=== PATIENT | female | born 1985 | race Caucasian/White ===

== ENCOUNTER 2016-12-06 16:57 | Observation (INO) | payer MEDICAID, SELFPAY ==
[2016-12-06 17:07] VITALS: BMI 28.7
[2016-12-06 17:30] VITALS: BP 133/85; PULSE 87; RESP 20; TEMP 36.8
--- NOTE | 2016-12-06 17:57 | PCM.HP.STD ---
Problem List (1) Heroin withdrawal Status: Acute (2) Polysubstance abuse Status: Chronic (3) Nicotine abuse Status: Chronic (4) Anxiety Status: Chronic (5) Depression Status: Chronic (6) Hx of migraines Status: Chronic History of Present Illness Date of Admission: 12/06/16 Chief Complaint: Heroin withdrawal The patient is a 31 year old F who was admitted to the hospital under the [facility] for heroin withdrawal. The patient came straight here from [facility] emergency room. Last night she was admitted to the emergency room in overdose and unresponsive. She received doses of Narcan nasally which were ineffective and had to receive IO access in order to receive Narcan. This is the second time she is overdosed this week. The first time she claims she did not need Narcan to bring her out of it. The patient was clean for 4 years successfully in the [facility] Sub[facility] program. After she is released from the hospital she plans on pursuing this again. Currently she is very anxious. She is having diarrhea multiple times a day. She had a headache this morning however this is resolved, she does have a history of migraines. She has pain in her left leg at the IO site. She has no fevers or chills. She is requesting nicotine patch. Patient does admit to using other drugs, she is not sure what she just uses recreationally whatever is available to her. She is not sure what she last took that made her overdose this much, stating she does not know what was in it. Prior to arrival she was living with her fianc? who does not use, her plan is to return home with her parents at discharge. She currently does not have any injection site reactions, she does have a history of abscesses. He has never had MRSA. [] Past Medical History Past Medical History (Chronic Problems): Chronic Problems Anxiety (Chronic) Depression (Chronic) Hx of migraines (Chronic) Nicotine abuse (Chronic) Polysubstance abuse (Chronic) Allergies No Known Allergies Allergy (Verified 03/28/15 09:00) Smoking Status: Heavy Smoker (>10/day) - *Family History Sibling History Items: - - Multiple siblings with depression and anxiety Review of Systems Constitutional: Denies: Chills, Fever Eyes: Denies: Blurred vision, Double vision HEENT: Denies: Difficulty Hearing, Dysphasia, Head Aches, Sinus Congestion, Sinus Drainage, Visual Changes Cardiovascular: Denies: Chest Pain, Chest Pressure, Chest Tightness, Palpitations, Syncope Respiratory: Denies: Cough, Shortness of breath at rest, Sputum production Gastrointestinal: Denies: Abdominal Pain, Nausea, Vomiting Genitourinary: Denies: Dysuria Musculoskeletal: Reports: Leg Pain - Left lower extremity at IO site.. Denies: Joint Pain, Joint Tenderness Skin: Denies: Rash, Wounds Neurological: Reports: Headaches - This a.m.. Denies: Blurred vision, Double vision, Confusion, Focal weakness, Numbness, Tingling, Tremor Psychiatric: Denies: Anxiety, Depression, Homicidal Ideations, Suicidal Ideations Hematologic/ Lymphatic: Denies: Easy Bruising, Easy Bleeding VTE Information - Inpt Only VTE Present on Admission: No VTE Mechan Device Prophylaxis: None VTE Pharm Prophylaxis ordered?: Yes Patient Problems: Active and Suspected Problems Heroin withdrawal (Acute) - Physical Exam General: Alert, Oriented x3, Cooperative HEENT: Atraumatic, PERRLA, EOMI, Normocephalic Neck: Supple, No JVD, Negative Carotid Bruits Lungs: Clear to auscultation, Normal air movement Cardiovascular: Regular rate, No murmurs Abdomen: Bowel Sounds Present, Soft, Non Tender Extremities: No edema, Capillary Refill Less than 3 Seconds Skin: No rashes, No breakdown Musculoskeletal: No Tenderness to Palpation of Joints or Extremities Neurological: Cranial nerves II-XII grossly intact Psych/Mental Status: Normal Affect, Appropriate Oxygen Delivery Method Room Air Weight: 75.886 kg Body Mass Index (BMI) 28.7 Assessment/Plan Active and Suspected Problems Heroin withdrawal (Acute) Assessment/plan: 1. Heroin withdrawal-patient is [facility]. Initiate opiate withdrawal protocol. Patient has polysubstance abuse and is not sure what she takes. We will do a urine drug screen. She does strongly deny any benzo use. Has successfully been in [facility] clinic and clean for 4 years in the past and will pursue this as an outpatient on discharge. She has overdosed twice this week, the last episode requiring IO Narcan in order to revive her. Came here straight from [place] emergency room 2. Polysubstance abuse 3. Nicotine abuse-1-1/2 packs per day, start 21 mg per day nicotine patch 4. Depression anxiety continue home medications, add as needed Seroquel in addition to home Seroquel dose. 5. History of migraines-currently stable DVT prophylaxis: Lovenox Estimated length of stay greater than 2 midnights Discharge planning: Plans to go home with parents for support.
--- NOTE | 2016-12-06 18:07 | HP.PCM_ITS ---
Problem List (1) Heroin withdrawal Status: Acute (2) Polysubstance abuse Status: Chronic (3) Nicotine abuse Status: Chronic (4) Anxiety Status: Chronic (5) Depression Status: Chronic (6) Hx of migraines Status: Chronic History of Present Illness Date of Admission: 12/06/16 Chief Complaint: Heroin withdrawal The patient is a 31 year old F who was admitted to the hospital under the [facility] for heroin withdrawal. The patient came straight here from [facility] emergency room. Last night she was admitted to the emergency room in overdose and unresponsive. She received doses of Narcan nasally which were ineffective and had to receive IO access in order to receive Narcan. This is the second time she is overdosed this week. The first time she claims she did not need Narcan to bring her out of it. The patient was clean for 4 years successfully in the [facility] Sub[facility] program. After she is released from the hospital she plans on pursuing this again. Currently she is very anxious. She is having diarrhea multiple times a day. She had a headache this morning however this is resolved, she does have a history of migraines. She has pain in her left leg at the IO site. She has no fevers or chills. She is requesting nicotine patch. Patient does admit to using other drugs, she is not sure what she just uses recreationally whatever is available to her. She is not sure what she last took that made her overdose this much, stating she does not know what was in it. Prior to arrival she was living with her fianc? who does not use, her plan is to return home with her parents at discharge. She currently does not have any injection site reactions, she does have a history of abscesses. He has never had MRSA. [] Past Medical History Past Medical History (Chronic Problems): Chronic Problems Anxiety (Chronic) Depression (Chronic) Hx of migraines (Chronic) Nicotine abuse (Chronic) Polysubstance abuse (Chronic) Allergies No Known Allergies Allergy (Verified 03/28/15 09:00) Smoking Status: Heavy Smoker (>10/day) - *Family History Sibling History Items: - - Multiple siblings with depression and anxiety Review of Systems Constitutional: Denies: Chills, Fever Eyes: Denies: Blurred vision, Double vision HEENT: Denies: Difficulty Hearing, Dysphasia, Head Aches, Sinus Congestion, Sinus Drainage, Visual Changes Cardiovascular: Denies: Chest Pain, Chest Pressure, Chest Tightness, Palpitations, Syncope Respiratory: Denies: Cough, Shortness of breath at rest, Sputum production Gastrointestinal: Denies: Abdominal Pain, Nausea, Vomiting Genitourinary: Denies: Dysuria Musculoskeletal: Reports: Leg Pain - Left lower extremity at IO site.. Denies: Joint Pain, Joint Tenderness Skin: Denies: Rash, Wounds Neurological: Reports: Headaches - This a.m.. Denies: Blurred vision, Double vision, Confusion, Focal weakness, Numbness, Tingling, Tremor Psychiatric: Denies: Anxiety, Depression, Homicidal Ideations, Suicidal Ideations Hematologic/ Lymphatic: Denies: Easy Bruising, Easy Bleeding VTE Information - Inpt Only VTE Present on Admission: No VTE Mechan Device Prophylaxis: None VTE Pharm Prophylaxis ordered?: Yes Patient Problems: Active and Suspected Problems Heroin withdrawal (Acute) - Physical Exam General: Alert, Oriented x3, Cooperative HEENT: Atraumatic, PERRLA, EOMI, Normocephalic Neck: Supple, No JVD, Negative Carotid Bruits Lungs: Clear to auscultation, Normal air movement Cardiovascular: Regular rate, No murmurs Abdomen: Bowel Sounds Present, Soft, Non Tender Extremities: No edema, Capillary Refill Less than 3 Seconds Skin: No rashes, No breakdown Musculoskeletal: No Tenderness to Palpation of Joints or Extremities Neurological: Cranial nerves II-XII grossly intact Psych/Mental Status: Normal Affect, Appropriate Oxygen Delivery Method Room Air Weight: 75.886 kg Body Mass Index (BMI) 28.7 Assessment/Plan Active and Suspected Problems Heroin withdrawal (Acute) Assessment/plan: 1. Heroin withdrawal-patient is admitted through [facility] program. Initiate opiate withdrawal protocol. Patient has polysubstance abuse and is not sure what she takes. We will do a urine drug screen. She does strongly deny any benzo use. Has successfully been in Sub[facility] clinic and clean for 4 years in the past and will pursue this as an outpatient on discharge. She has overdosed twice this week, the last episode requiring IO Narcan in order to revive her. Came here straight from [place] emergency room 2. Polysubstance abuse 3. Nicotine abuse-1-1/2 packs per day, start 21 mg per day nicotine patch 4. Depression anxiety continue home medications, add as needed Seroquel in addition to home Seroquel dose. 5. History of migraines-currently stable DVT prophylaxis: Lovenox Estimated length of stay greater than 2 midnights Discharge planning: Plans to go home with parents for support.
[2016-12-06 18:20] VITALS: PULSE 85
[2016-12-06 18:30] LABS: Hematocrit 36.2 % (37-47); Hemoglobin 11.6 g/dl (12.0-15.0); Mean Corpuscular Hgb 27.6 pg (27.0-32.0); Mean Platelet Vol. 9.8 fl (6.2-12.0); Platelet Count 174 K/mm3 (150-450); RBC Distribution Width CV 14.9 % (11.6-14.6); RBC Distribution Width SD 45.7 fl (35.1-43.9); Red Blood Count 4.21 M/mm3 (4.2-5.4); White Blood Count 11.7 K/mm3 (4.4-11.0)
[2016-12-06 18:34] LABS: Scan Indicated on CBC? Y/N NO
[2016-12-06] MEDS: Buprenorphine HCl 2 MG TAB.SUBL SL (18:37)
[2016-12-06] MEDS: Methocarbamol 750 MG Tablet PO (18:37)
[2016-12-06] MEDS: Dicyclomine 10 MG Capsule 20 MG PO (18:38)
[2016-12-06] MEDS: Acetaminophen 325 MG Tablet 650 MG PO (18:38)
[2016-12-06 18:45] LABS: AST(SGOT) 68 U/L (15-37); Alanine Aminotransfer ALT/SGPT 147 U/L (12-78); Albumin, Serum 2.8 g/dL (3.4-5.0); Alkaline Phosphatase 98 U/L (45-117); BUN 15 mg/dL (7-18); BUN/Creat Ratio 24.8 RATIO (10-20); Bilirubin, Direct 0.05 mg/dL (0.00-0.30); Creatinine, Serum 0.61 mg/dL (0.55-1.02); EST Glomerular Filtration Rate 123 mL/min (>60); Est Glom Filt Rate - Afr Amer 149 mL/min (>60); Estimated Creatinine Clearance 116.45 ml/min; Globulin 3.1 g/dL (2.3-3.5); Glucose 92 mg/dL (70-110); Potassium 3.9 mmol/L (3.5-5.1); Protein, Total 5.9 g/dL (6.4-8.2); Sodium Level 137 mmol/L (136-145)
[2016-12-06 18:46] LABS: Anion Gap 7 (5-15); Chloride 105 mmol/L (98-107)
--- NOTE | 2016-12-06 19:19 | RAD_ITS ---
STUDY: X-RAY CHEST REASON FOR EXAM: Female, 31 years old. Cough. CPR yesterday. Chest pain. TECHNIQUE: PA and lateral views of the chest. COMPARISON: None. FINDINGS: Telemetry wires overlie the chest. The lungs are clear and expanded. No pneumothorax. There is no demonstrated pleural abnormality. Normal size heart. Normal mediastinum and abilio. Normal visualized pulmonary arteries. Normal visualized aortic arch and descending thoracic aorta. There are mild degenerative changes of the visualized thoracic spine. Normal visualized ribs, clavicles, and shoulders. There is no demonstrated abnormality of the visualized soft tissue structures of the upper abdomen. RAD/Chest PA and Lateral IMPRESSION: No acute cardiopulmonary disease. Electronically Signed: Musa Hollingsworth DO at 19:45 EDT Tel [phone], Service support ,
--- NOTE | 2016-12-06 19:20 | EKG12_ITS ---
Test Reason : Blood Pressure : / mmHG Vent. Rate : 080 BPM Atrial Rate : 080 BPM P-R Int : 146 ms QRS Dur : 082 ms QT Int : 386 ms P-R-T Axes : 063 056 058 degrees QTc Int : 445 ms Normal sinus rhythm with sinus arrhythmia Normal ECG No previous ECGs available Confirmed by JOLENE HAQUE, MICHELLE ([id number]), digital editor MARIANO NEFF ([id number] on 12/20/2016 12:17:13 PM Referred By: REESE Confirmed By:MICHELLE FERNÁNDEZ MD
[2016-12-06 19:30] VITALS: PULSE 85
[2016-12-06 19:34] LABS: Amphetamine Urine VISTA NEGATIVE (<1000 ng/mL); Barbiturate Urine VISTA NEGATIVE (< 200 ng/mL); Benzodiazepine Urine VISTA NEGATIVE (< 200 ng/mL); Cocaine Urine VISTA NEGATIVE (< 300 ng/mL); Ecstacy Urine VISTA NEGATIVE (< 500 ng/mL); Methadone Urine VISTA NEGATIVE (< 300 ng/mL); PCP Urine VISTA NEGATIVE (< 25 ng/mL); THC Urine VISTA NEGATIVE (< 50 ng/mL); Vista UDS pH Range 6
[2016-12-06 20:01] VITALS: O2SAT 97
[2016-12-06 21:57] VITALS: BP 117/76; PULSE 70; RESP 16; TEMP 35.7
[2016-12-06] MEDS: Loperamide 2 MG Capsule PO (22:10)
[2016-12-07] VITALS (15 sets, daily range): BP systolic 96–131; BP diastolic 58–86; PULSE 70–94; RESP 14–16; TEMP 35.9–36.8; O2SAT 94–98
[2016-12-07] MEDS: Buprenorphine HCl 2 MG TAB.SUBL SL ×3 (02:22→17:56)
--- NOTE | 2016-12-07 09:55 | PCM.PN.HOSP ---
Patient Problems: Active and Suspected Problems Heroin withdrawal (Acute) Subjective: Still having muscle twitching, diarrhea, tremors and lethargic and anxiety but symptoms are getting better. Vitals/I&O's: Vital Signs Temp Pulse Resp BP Pulse Ox 97.9 F 89 16 120/86 94 12/07/16 09:46 12/07/16 09:46 12/07/16 09:46 12/07/16 09:46 12/07/16 07:57 Oxygen Delivery Method Room Air Weight: 75.886 kg Body Mass Index (BMI) 28.7 Intake and Output for Last 24 Hours 12/05/16 12/06/16 12/07/16 23:59 23:59 23:59 Intake Total 222 800 Balance 222 800 General: Alert, Oriented x3, Cooperative, Lethargic HEENT: Atraumatic, PERRLA, EOMI, Normocephalic Oral: Moist Mucosa Neck: Supple, No JVD, Negative Carotid Bruits Lungs: Clear to auscultation, Normal air movement, No rhonchi, No wheeze, No rales Cardiovascular: Regular rate, Regular Rhythm, Normal S1, Normal S2, No murmurs Abdomen: Bowel Sounds Present, Soft, Non Tender, Non-Distended Extremities: No edema, Capillary Refill Less than 3 Seconds Skin: No rashes, No breakdown Musculoskeletal: No Tenderness to Palpation of Joints or Extremities Neurological: Cranial nerves II-XII grossly intact Psych/Mental Status: Normal Affect, Appropriate Laboratory Results 12/06/16 17:10: Urine Opiates Screen NEGATIVE, Urine Methadone Screen NEGATIVE, Ur Barbiturates Screen NEGATIVE, Ur Phencyclidine Scrn NEGATIVE, Ur Amphetamines Screen NEGATIVE, U Methamphetamin-MDMA NEGATIVE, U Benzodiazepines Scrn NEGATIVE, Urine Cocaine Screen NEGATIVE, U Cannabinoids Screen NEGATIVE, Ur Drug Screen Comment 12/06/16 18:06: WBC 11.7 H, RBC 4.21, Hgb 11.6 L, Hct 36.2 L, MCV 86.0, MCH 27.6, MCHC 32.0, RDW 14.9 H, RDW Differential 45.7 H, Plt Count 174, MPV 9.8 12/06/16 18:06: Sodium 137, Potassium 3.9, Chloride 105, Carbon Dioxide 25.0, Anion Gap 7, BUN 15, Creatinine 0.61, Estim Creat Clear Calc 116.45, Est GFR (MDRD) Af Amer 149, Est GFR (MDRD) Non-Af 123, BUN/Creatinine Ratio 24.8 H, Glucose 92, Calcium 8.0 L, Total Bilirubin 0.20, Direct Bilirubin 0.05, AST 68 H, ALT 147 H, Alkaline Phosphatase 98, Total Protein 5.9 L, Albumin 2.8 L, Globulin 3.1 Current Medications Acetaminophen (Tylenol) 650 mg PO Q6H PRN PRN PRN Reason: Mild Pain (scale 0-3)/T>100.7 Last Admin: 12/06/16 18:38 Dose: 650 mg Buprenorphine HCl (Buprenorphine Hcl) 4 mg SL Q8H LIANET PRN Reason: Taper Stop: 12/09/16 17:44 Last Admin: 12/07/16 02:22 Dose: 4 mg Carbidopa/Levodopa (Sinemet) 1 tablet PO Q8H PRN PRN PRN Reason: RESTLESSNESS Chlordiazepoxide (Librium) 25 mg PO Q6H PRN PRN PRN Reason: Mod-Sev Anxiety (score 2-3/3) Last Admin: 12/07/16 02:29 Dose: 25 mg Clonidine (Catapres) 0.1 mg PO Q2H PRN PRN Reason: Hot/Cold Sweats or Anxiety Dicyclomine HCl (Bentyl) 20 mg PO Q6H PRN PRN PRN Reason: Abdomnial Discomfort Last Admin: 12/06/16 18:38 Dose: 20 mg Docusate Sodium (Colace) 200 mg PO BID PRN PRN PRN Reason: Constipation Duloxetine HCl (Cymbalta) 60 mg PO DAILY@2200 [facility] Hydroxyzine Pamoate (Vistaril) 50 mg PO Q6H PRN PRN PRN Reason: Mild Anxiety (score 1/3) Last Admin: 12/06/16 22:10 Dose: 50 mg Hydroxyzine Pamoate (Vistaril) 50 mg PO Q4H PRN PRN PRN Reason: ANXIETY Loperamide HCl (Imodium) 2 mg PO Q4H PRN PRN PRN Reason: Diarrhea Last Admin: 12/06/16 22:10 Dose: 2 mg Methocarbamol (Methocarbamol) 750 mg PO 4X/DAY PRN PRN Reason: Muscle Aches Last Admin: 12/06/16 18:37 Dose: 750 mg Nicotine (Nicoderm Cq (Pbkc)) 21 mg TRANSDERM. DAILY [facility] Quetiapine Fumarate (Seroquel) 25 mg PO Q6H PRN PRN PRN Reason: Moderate Anxiety (score 2/3) Quetiapine Fumarate (Seroquel) 150 mg PO QHS LIANET Last Admin: 12/06/16 22:10 Dose: 150 mg Rizatriptan Benzoate (Maxalt) 10 mg PO DAILY PRN PRN PRN Reason: MIGRAINE SYMPTOMS Sodium Chloride () 5 - 15 ml IV UD PRN PRN Reason: SALINE FLUSH Assessment/Plan Active and Suspected Problems Heroin withdrawal (Acute) patient is admitted for heroin withdrawal, started in 2010, stopped in 2011 and sober for 4 years and then relapsed in April 2016. She further added that she was diagnosed with hepatitis C in 2011 and was treated with interferon and was told that she is virus free. She mainly uses her arm for IV heroin injections. She was started on Augmentin 875 mg twice daily in [facility], etiology unclear but was told to prevent infection. Came here straight from [place] emergency room. 1. Heroin withdrawal-patient is admitted through [facility] program. Initiate opiate withdrawal protocol. Patient has polysubstance abuse and is not sure what she takes. urine drug screen is negative. She does strongly deny any benzo use. Has successfully been in [facility] clinic and clean for 4 years in the past and will pursue this as an outpatient on discharge. She has overdosed twice this week, the last episode requiring IO Narcan in order to revive her. 1. Hepatitis C status post treatment and possible code hepatitis panel ordered. LFT shows elevated transaminases ALT more than AST, low albumin. 2. I do not think there is indication of Augmentin for prophylaxis since of active infection. Watch for fever and vitals. X-ray and EKG ordered. Denies history of infective endocarditis/valvular heart disease. No HEART murmur heard. No rash. The patient is admitted under [facility]. Polysubstance abuse Nicotine abuse-1-1/2 packs per day, start 21 mg per day nicotine patch Depression anxiety continue home medications, add as needed Seroquel in addition to home Seroquel dose. History of migraines-currently stable DVT prophylaxis: Low risk. B/L SCD Estimated length of stay greater than 2 midnights Discharge planning: Plans to go home with parents for support.
--- NOTE | 2016-12-07 09:59 | PN_ITS ---
Patient Problems: Active and Suspected Problems Heroin withdrawal (Acute) Subjective: Still having muscle twitching, diarrhea, tremors and lethargic and anxiety but symptoms are getting better. Vitals/I&O's: Vital Signs Temp Pulse Resp BP Pulse Ox 97.9 F 89 16 120/86 94 12/07/16 09:46 12/07/16 09:46 12/07/16 09:46 12/07/16 09:46 12/07/16 07:57 Oxygen Delivery Method Room Air Weight: 75.886 kg Body Mass Index (BMI) 28.7 Intake and Output for Last 24 Hours 12/05/16 12/06/16 12/07/16 23:59 23:59 23:59 Intake Total 222 800 Balance 222 800 General: Alert, Oriented x3, Cooperative, Lethargic HEENT: Atraumatic, PERRLA, EOMI, Normocephalic Oral: Moist Mucosa Neck: Supple, No JVD, Negative Carotid Bruits Lungs: Clear to auscultation, Normal air movement, No rhonchi, No wheeze, No rales Cardiovascular: Regular rate, Regular Rhythm, Normal S1, Normal S2, No murmurs Abdomen: Bowel Sounds Present, Soft, Non Tender, Non-Distended Extremities: No edema, Capillary Refill Less than 3 Seconds Skin: No rashes, No breakdown Musculoskeletal: No Tenderness to Palpation of Joints or Extremities Neurological: Cranial nerves II-XII grossly intact Psych/Mental Status: Normal Affect, Appropriate Laboratory Results 12/06/16 17:10: Urine Opiates Screen NEGATIVE, Urine Methadone Screen NEGATIVE, Ur Barbiturates Screen NEGATIVE, Ur Phencyclidine Scrn NEGATIVE, Ur Amphetamines Screen NEGATIVE, U Methamphetamin-MDMA NEGATIVE, U Benzodiazepines Scrn NEGATIVE, Urine Cocaine Screen NEGATIVE, U Cannabinoids Screen NEGATIVE, Ur Drug Screen Comment 12/06/16 18:06: WBC 11.7 H, RBC 4.21, Hgb 11.6 L, Hct 36.2 L, MCV 86.0, MCH 27.6 , MCHC 32.0, RDW 14.9 H, RDW Differential 45.7 H, Plt Count 174, MPV 9.8 12/06/16 18:06: Sodium 137, Potassium 3.9, Chloride 105, Carbon Dioxide 25.0, Anion Gap 7, BUN 15, Creatinine 0.61, Estim Creat Clear Calc 116.45, Est GFR ( MDRD) Af Amer 149, Est GFR (MDRD) Non-Af 123, BUN/Creatinine Ratio 24.8 H, Glucose 92, Calcium 8.0 L, Total Bilirubin 0.20, Direct Bilirubin 0.05, AST 68 H , ALT 147 H, Alkaline Phosphatase 98, Total Protein 5.9 L, Albumin 2.8 L, Globulin 3.1 Current Medications Acetaminophen (Tylenol) 650 mg PO Q6H PRN PRN PRN Reason: Mild Pain (scale 0-3)/T>100.7 Last Admin: 12/06/16 18:38 Dose: 650 mg Buprenorphine HCl (Buprenorphine Hcl) 4 mg SL Q8H LIANET PRN Reason: Taper Stop: 12/09/16 17:44 Last Admin: 12/07/16 02:22 Dose: 4 mg Carbidopa/Levodopa (Sinemet) 1 tablet PO Q8H PRN PRN PRN Reason: RESTLESSNESS Chlordiazepoxide (Librium) 25 mg PO Q6H PRN PRN PRN Reason: Mod-Sev Anxiety (score 2-3/3) Last Admin: 12/07/16 02:29 Dose: 25 mg Clonidine (Catapres) 0.1 mg PO Q2H PRN PRN Reason: Hot/Cold Sweats or Anxiety Dicyclomine HCl (Bentyl) 20 mg PO Q6H PRN PRN PRN Reason: Abdomnial Discomfort Last Admin: 12/06/16 18:38 Dose: 20 mg Docusate Sodium (Colace) 200 mg PO BID PRN PRN PRN Reason: Constipation Duloxetine HCl (Cymbalta) 60 mg PO DAILY@2200 [facility] Hydroxyzine Pamoate (Vistaril) 50 mg PO Q6H PRN PRN PRN Reason: Mild Anxiety (score 1/3) Last Admin: 12/06/16 22:10 Dose: 50 mg Hydroxyzine Pamoate (Vistaril) 50 mg PO Q4H PRN PRN PRN Reason: ANXIETY Loperamide HCl (Imodium) 2 mg PO Q4H PRN PRN PRN Reason: Diarrhea Last Admin: 12/06/16 22:10 Dose: 2 mg Methocarbamol (Methocarbamol) 750 mg PO 4X/DAY PRN PRN Reason: Muscle Aches Last Admin: 12/06/16 18:37 Dose: 750 mg Nicotine (Nicoderm Cq (Pbkc)) 21 mg TRANSDERM. DAILY [facility] Quetiapine Fumarate (Seroquel) 25 mg PO Q6H PRN PRN PRN Reason: Moderate Anxiety (score 2/3) Quetiapine Fumarate (Seroquel) 150 mg PO QHS LIANET Last Admin: 12/06/16 22:10 Dose: 150 mg Rizatriptan Benzoate (Maxalt) 10 mg PO DAILY PRN PRN PRN Reason: MIGRAINE SYMPTOMS Sodium Chloride () 5 - 15 ml IV UD PRN PRN Reason: SALINE FLUSH Assessment/Plan Active and Suspected Problems Heroin withdrawal (Acute) patient is admitted for heroin withdrawal, started in 2010, stopped in 2011 and sober for 4 years and then relapsed in April 2016. She further added that she was diagnosed with hepatitis C in 2011 and was treated with interferon and was told that she is virus free. She mainly uses her arm for IV heroin injections. She was started on Augmentin 875 mg twice daily in [facility] etiology unclear but was told to prevent infection. Came here straight from [place] emergency room. 1. Heroin withdrawal-patient is admitted through [facility] program. Initiate opiate withdrawal protocol. Patient has polysubstance abuse and is not sure what she takes. urine drug screen is negative. She does strongly deny any benzo use. Has successfully been in Suboxone clinic and clean for 4 years in the past and will pursue this as an outpatient on discharge. She has overdosed twice this week, the last episode requiring IO Narcan in order to revive her. 1. Hepatitis C status post treatment and possible code hepatitis panel ordered. LFT shows elevated transaminases ALT more than AST, low albumin. 2. I do not think there is indication of Augmentin for prophylaxis since of active infection. Watch for fever and vitals. X-ray and EKG ordered. Denies history of infective endocarditis/valvular heart disease. No HEART murmur heard. No rash. The patient is admitted under [facility]. Polysubstance abuse Nicotine abuse-1-1/2 packs per day, start 21 mg per day nicotine patch Depression anxiety continue home medications, add as needed Seroquel in addition to home Seroquel dose. History of migraines-currently stable DVT prophylaxis: Low risk. B/L SCD Estimated length of stay greater than 2 midnights Discharge planning: Plans to go home with parents for support.
[2016-12-07] MEDS: Loperamide 2 MG Capsule PO (14:42)
[2016-12-08] VITALS (16 sets, daily range): BP systolic 96–134; BP diastolic 57–85; PULSE 80–126; RESP 16; TEMP 35.7–36.8; O2SAT 96–99
[2016-12-08] MEDS: Buprenorphine HCl 2 MG TAB.SUBL SL ×3 (01:49→19:20)
[2016-12-08] MEDS: Dicyclomine 10 MG Capsule 20 MG PO (01:51)
[2016-12-08] MEDS: Acetaminophen 325 MG Tablet 650 MG PO (07:25)
--- NOTE | 2016-12-08 07:48 | NURSING ---
0720 VS RESULTS NOTED. OXYGEN SATURATION 96% ON RA.
--- NOTE | 2016-12-08 11:03 | PN_ITS ---
Patient Problems: Active and Suspected Problems Heroin withdrawal (Acute) Subjective: Patient is more awake and alert. Diarrhea has resolved now having well formed stool. nO Tremors/shaking. Vitals/I&O's: Vital Signs Temp Pulse Resp BP Pulse Ox 98.2 F 84 16 101/66 96 12/08/16 07:20 12/08/16 07:32 12/08/16 07:45 12/08/16 07:20 12/08/16 07:45 Oxygen Delivery Method Room Air Weight: 75.886 kg Body Mass Index (BMI) 28.7 Intake and Output for Last 24 Hours 12/06/16 12/07/16 12/08/16 23:59 23:59 23:59 Intake Total 222 800 800 Balance 222 800 800 General: Alert, Oriented x3, Cooperative HEENT: Atraumatic, PERRLA, EOMI, Normocephalic Neck: Supple, No JVD, Negative Carotid Bruits Lungs: Clear to auscultation, Normal air movement, No rhonchi, No wheeze, No rales Cardiovascular: Regular rate, Regular Rhythm, Normal S1, Normal S2, No murmurs Abdomen: Bowel Sounds Present, Soft, Non Tender, Non-Distended Extremities: No edema, Capillary Refill Less than 3 Seconds Skin: No rashes, No breakdown Musculoskeletal: No Tenderness to Palpation of Joints or Extremities Neurological: Cranial nerves II-XII grossly intact Psych/Mental Status: Normal Affect, Appropriate Laboratory Results 12/07/16 12:02: Hepatitis A IgM Ab Pending, Hep Bs Antigen Pending, Hep B Core IgM Ab Pending, Hepatitis C Ab (EIA) Pending 12/07/16 12:02: HCV RNA Quant (PCR) Pending Current Medications Acetaminophen (Tylenol) 650 mg PO Q6H PRN PRN PRN Reason: Mild Pain (scale 0-3)/T>100.7 Last Admin: 12/08/16 07:25 Dose: 650 mg Buprenorphine HCl (Buprenorphine Hcl) 2 mg SL Q8H LIANET PRN Reason: Taper Stop: 12/09/16 17:44 Last Admin: 12/08/16 10:35 Dose: 2 mg Carbidopa/Levodopa (Sinemet) 1 tablet PO Q8H PRN PRN PRN Reason: RESTLESSNESS Chlordiazepoxide (Librium) 25 mg PO Q6H PRN PRN PRN Reason: Mod-Sev Anxiety (score 2-3/3) Last Admin: 12/07/16 21:51 Dose: 25 mg Clonidine (Catapres) 0.1 mg PO Q2H PRN PRN Reason: Hot/Cold Sweats or Anxiety Last Admin: 12/08/16 07:25 Dose: 0.1 mg Dicyclomine HCl (Bentyl) 20 mg PO Q6H PRN PRN PRN Reason: Abdomnial Discomfort Last Admin: 12/08/16 01:51 Dose: 20 mg Docusate Sodium (Colace) 200 mg PO BID PRN PRN PRN Reason: Constipation Duloxetine HCl (Cymbalta) 60 mg PO DAILY@2200 LIANET Last Admin: 12/07/16 21:46 Dose: 60 mg Hydroxyzine Pamoate (Vistaril) 50 mg PO Q6H PRN PRN PRN Reason: Mild Anxiety (score 1/3) Last Admin: 12/07/16 14:42 Dose: 50 mg Hydroxyzine Pamoate (Vistaril) 50 mg PO Q4H PRN PRN PRN Reason: ANXIETY Loperamide HCl (Imodium) 2 mg PO Q4H PRN PRN PRN Reason: Diarrhea Last Admin: 12/07/16 14:42 Dose: 2 mg Methocarbamol (Methocarbamol) 750 mg PO 4X/DAY PRN PRN Reason: Muscle Aches Last Admin: 12/06/16 18:37 Dose: 750 mg Nicotine (Nicoderm Cq (Pbkc)) 21 mg TRANSDERM. DAILY [facility] Last Admin: 12/08/16 10:34 Dose: 21 mg Ondansetron HCl (Zofran) 8 mg PO Q8H PRN PRN PRN Reason: nausea, emesis Quetiapine Fumarate (Seroquel) 25 mg PO Q6H PRN PRN PRN Reason: Moderate Anxiety (score 2/3) Quetiapine Fumarate (Seroquel) 150 mg PO QHS [facility] Last Admin: 12/07/16 21:46 Dose: 150 mg Rizatriptan Benzoate (Maxalt) 10 mg PO DAILY PRN PRN PRN Reason: MIGRAINE SYMPTOMS Sodium Chloride () 5 - 15 ml IV UD PRN PRN Reason: SALINE FLUSH Assessment/Plan Active and Suspected Problems Heroin withdrawal (Acute) patient is admitted for heroin withdrawal, started in 2010, stopped in 2011 and sober for 4 years and then relapsed in April 2016. She further added that she was diagnosed with hepatitis C in 2011 and was treated with interferon and was told that she is virus free. She mainly uses her arm for IV heroin injections. She was started on Augmentin 875 mg twice daily in [facility], etiology unclear but was told to prevent infection. Came here straight from [place] emergency room. 1. Heroin withdrawal-patient is admitted through [facility] program. Initiate opiate withdrawal protocol. Patient has polysubstance abuse and is not sure what she takes. urine drug screen is negative. She does strongly deny any benzo use. Has successfully been in Suboxone clinic and clean for 4 years in the past and will pursue this as an outpatient on discharge. She has overdosed twice this week, the last episode requiring IO Narcan in order to revive her. Overall, medically stable. 1. Hepatitis C status post treatment and possible code hepatitis panel ordered. LFT shows elevated transaminases ALT more than AST, low albumin. Hepatitis profile pending 2. I do not think there is indication of Augmentin for prophylaxis since of active infection. Watch for fever and vitals. X-ray and EKG ordered. Denies history of infective endocarditis/valvular heart disease. No HEART murmur heard. No rash. The patient is admitted under [facility]. Polysubstance abuse Nicotine abuse-1-1/2 packs per day, start 21 mg per day nicotine patch Depression anxiety continue home medications, add as needed Seroquel in addition to home Seroquel dose. History of migraines-currently stable DVT prophylaxis: Low risk. B/L SCD Estimated length of stay greater than 2 midnights Discharge planning: Plans to go home with parents for support. Laboratory Results 12/07/16 12:02: Hepatitis A IgM Ab Pending, Hep Bs Antigen Pending, Hep B Core IgM Ab Pending, Hepatitis C Ab (EIA) Pending 12/07/16 12:02: HCV RNA Quant (PCR) Pending Clinical Impression(s) from Imaging Studies Chest X-Ray 12/06/16 19:19 IMPRESSION: No acute cardiopulmonary disease. Electronically Signed: Musa Hollingsworth DO at 19:45 EDT Tel [phone], Service support ,
--- NOTE | 2016-12-08 12:18 | NURSING ---
NURSE CONTACTS FATHER, YANE KIM, AND PAUL GARCIA, PER PATIENT REQUEST TO NOTIFY THAT PATIENT CAN NO LONGER PLACE LONG DISTANCE PHONE CALLS. YANE AND PAUL VERBALIZE UNDERSTANDING.
[2016-12-08 16:07] LABS: HEPATITIS B SURFACE AG Negative (Negative); Hepatitis A IgM Antibody Negative (Negative); Hepatitis B Core AB IgM Negative (Negative)
[2016-12-09] VITALS (7 sets, daily range): BP systolic 101–110; BP diastolic 61–62; PULSE 80–105; RESP 16–18; TEMP 36.7–36.8; O2SAT 96–98
[2016-12-09] MEDS: Carbidopa/Levodopa 25/100 Tablet PO
[2016-12-09] MEDS: Buprenorphine HCl 2 MG TAB.SUBL SL (05:38)
[2016-12-09] MEDS: Ondansetron 8 MG Tablet PO (05:39)
[2016-12-09] MEDS: Methocarbamol 750 MG Tablet PO (07:37)
--- NOTE | 2016-12-09 09:08 | PCM.DC ---
Discharge Diet: No Restrictions Discharge Activity: May not drive while taking narcotic pain medications. Allergies/Adverse Reactions: Allergies No Known Allergies Allergy (Verified 12/06/16 17:59) Medications to take at Discharge Duloxetine Hcl [Cymbalta] 60 mg PO DAILY 12/06/16 Hydroxyzine Pamoate [Vistaril] 50 mg PO Q4H PRN PRN 12/06/16 Quetiapine Fumarate [Seroquel] 150 mg PO QHS 12/06/16 Sumatriptan Succinate [Imitrex] 50 mg PO DAILY PRN PRN 12/06/16 Primary Care Physician: Care Physician,No Primary [Primary Care Provider] - Please follow up with your Primary Care Physician in: in 1-2 weeks Proposed Discharge Date: 12/09/16
--- NOTE | 2016-12-09 09:09 | PCM.DC.SUM ---
Discharge Date and Diagnosis - Problem List Patient Problems: Active and Suspected Problems Heroin withdrawal (Acute) Date of Admission: 12/06/16 Date of Discharge: 12/09/16 - Primary Discharge Diagnosis Active and Suspected Problems Heroin withdrawal (Acute) - Secondary Discharge Diagnosis Chronic Problems Anxiety (Chronic) Depression (Chronic) Hx of migraines (Chronic) Nicotine abuse (Chronic) Polysubstance abuse (Chronic) Hospital Course and Treatment Summary of Care Provided: The patient is a 31 year old F 2 of her independence admitted with acute withdrawal on 1. Acute opioid withdrawal in the context of heroin use. Patient was placed on a regular nursing floor manage with Subutex for medical stabilization. Patient was also counseled on cessation 2. History of hep C status 3. Tobacco dependence counseled on cessation Discharge Diet: No Restrictions Discharge Activity: May not drive while taking narcotic pain medications. Home Medications: Medications to take at Discharge Duloxetine Hcl [Cymbalta] 60 mg PO DAILY 12/06/16 Hydroxyzine Pamoate [Vistaril] 50 mg PO Q4H PRN PRN 12/06/16 Quetiapine Fumarate [Seroquel] 150 mg PO QHS 12/06/16 Sumatriptan Succinate [Imitrex] 50 mg PO DAILY PRN PRN 12/06/16 Primary Care Physician: Care Physician,No Primary [Primary Care Provider] - Please follow up with your Primary Care Physician in: in 1-2 weeks Disposition: Home Minutes spent on discharge:: 35 Patient Condition:: Stable Meaningful Use Info Meaningful Use Diagnoses (Choose all that apply): None applicable
[2016-12-09 11:45] LABS: Hep C Antibodies >11.0 s/co ratio (0.0-0.9)
[2016-12-09 16:08] LABS: HCV Quant. RNA PCR 5210 IU/mL (.)
[2016-12-10 08:29] LABS: HCV log 10 3.717 (.)
== END 2016-12-09 10:36 | disposition home or self-care (01) | DRG 773 ==
LOC: MS2 06-01 08:11
PROVIDERS: Physician Assistant; Admitting Provider Internal Medicine; Visit Provider Internal Medicine
DX: F11.23 Opioid dependence with withdrawal (principal); Z86.19 Personal history of other infectious and parasitic diseases; F17.210 Nicotine dependence, cigarettes, uncomplicated; F19.10 Other psychoactive substance abuse, uncomplicated; F41.9 Anxiety disorder, unspecified; F32.9 Major depressive disorder, single episode, unspecified
CPT/HCPCS: 36415; 71020; 80048; 80074; 80076; 80307; 85027; 87522; 93005; 97802; 99218; G0378; G0379

== ENCOUNTER 2021-09-17 19:42 | Outpatient (CLI) | payer MEDICAID, SELFPAY | END 2021-09-17 23:59 | disposition short-term general hospital (02) | PROVIDERS: Visit Provider Otolaryngology | DX: G47.33 Obstructive sleep apnea (adult) (pediatric) (principal) | CPT/HCPCS: 95810 ==